=== PATIENT | female | born 1995 | race Caucasian/White ===

== ENCOUNTER → 2018-02-25 | Outpatient (CLI) | payer BC, OTHER ==
[~2018-02-25] MED LIST: HYDR-757 PO; L-ME15TA PO; NAPR550T PO; NF-NOR777T PO
--- NOTE | 2018-02-25 19:09 | Diagnostic Imaging Report ---
INDICATION: Lump in the outer left breast. EXAMINATION: Left breast ultrasound. FINDINGS: Sonographic interrogation of the area of lump in the outer left breast was performed. This corresponds to the 2-3 o'clock location. Patient appears to have breast implants. No solid or cystic mass is seen. Left axilla is unremarkable. IMPRESSION: BI-RADS 1. No sonographic abnormality is seen. Continued close clinical and self breast exam is recommended to confirm stability of the palpable abnormality in the left breast. ACR BI-RADS Category 1: Negative. Result letter will be mailed to the patient. Note: At least 10% of breast cancer is not imaged by mammography. Dictated by: Dictated on workstation # [id number]
== END ==
LOC: RAD 14:19
PROVIDERS: ATTEND Nurse Practitioner Family
DX: N63.20 Unspecified lump in the left breast, unspecified quadrant (principal)
CPT/HCPCS: 76641